=== PATIENT | female | born 1940 | race Caucasian/White ===

== ENCOUNTER 2024-07-27 10:24 | Day surgery (SDC) | payer MEDICARE ==
[2024-07-26 12:32] VITALS: BMI 30.9
[2024-07-27] MEDS ORDERED: Lidocaine 2% PF 5 ML VIAL ONE (11:44)
[2024-07-27] MEDS ORDERED: Iopamidol 15 ML ONE (11:53)
[2024-07-27] MEDS ORDERED: LevoFLOXacin D5W 500 mg (100 mL) BAG ONE (12:04)
[2024-07-27] MEDS ORDERED: PROPOFOL 200 MG/20 ML VIAL ONE (12:25)
[2024-07-27] MEDS ORDERED: fentaNYL PF 100 MCG/2 ML SYRINGE ONE (12:28)
[2024-07-27] MEDS ORDERED: Dexamethasone 4 mg/ml Vial ONE (12:28)
[2024-07-27] MEDS ORDERED: Ondansetron PF 4 MG/2 ML Vial ONE (12:28)
[2024-07-27] MEDS ORDERED: PHENYLEPHRINE-NS 100 MCG/ML 10 ML SYRINGE ONE (12:32)
[2024-07-27] MEDS ORDERED: HYDROcodone/Acetaminophen 5/325 mg Tablet ONE (14:33)
== END 2024-07-27 16:13 ==
LOC: SDC 10:24
PROVIDERS: ATTEND Urology
PROC: 0T768DZ Dilation of Right Ureter with Intraluminal Device, Via Natural or Artificial Opening Endoscopic (ICD-10-PCS; principal; 2024-07-27)
PROC: 0TC08ZZ Extirpation of Matter from Right Kidney, Via Natural or Artificial Opening Endoscopic (ICD-10-PCS; 2024-07-27)
DX: A41.9 Sepsis, unspecified organism (principal); N20.0 Calculus of kidney; E78.00 Pure hypercholesterolemia, unspecified; Z96.653 Presence of artificial knee joint, bilateral; Z90.710 Acquired absence of both cervix and uterus; Z86.73 Personal history of transient ischemic attack (TIA), and cerebral infarction without residual deficits; Z88.0 Allergy status to penicillin; Z79.02 Long term (current) use of antithrombotics/antiplatelets; Z79.899 Other long term (current) drug therapy
CPT/HCPCS: 52332; 52352; 74420; 82365; J1100; J1956; J2405; Q9967; 88300; C1747; C1769; C2617

== ENCOUNTER 2024-09-09 22:26 | Emergency (ER) | payer MEDICARE ==
[2024-09-09 23:06] LABS: #Basophils 0.08 10x3/uL (0.0-0.2); %Basophils 1.3 % (0.0-1.0); %Eosinophils 4.1 % (0.0-10.0); %Lymphocytes 26.8 % (21.0-51.0); %Monocytes 9.6 % (0.0-10.0); %Neutrophils 57.9 % (42.0-75.0); Hematocrit 35.3 % (36.0-47.0); Hemoglobin 11.4 g/dL (12.0-16.0); Mean Corpuscular HGB CONC 32.3 g/dL (32.0-36.0); Mean Corpuscular Hemoglobin 30.7 pg (27.0-31.0); Mean Corpuscular Volume 95.1 fL (78.0-98.0); Mean Platelet Volume 9.2 fL (7.4-10.4); Platelet Count 271 10x3/uL (130-400); RBC Distribution Width 14.6 % (11.5-14.5); Red Blood Cell (RBC) Count 3.71 mill/uL (4.20-5.40)
[2024-09-09 23:24] LABS: Prothrombin Time 13.4 sec (12.0-14.7)
[2024-09-09 23:29] LABS: ALT (SGPT) 14 U/L (8-55); AST (SGOT) 23 U/L (5-34); Albumin 3.5 g/dL (3.4-4.8); Alkaline Phosphatase 159 U/L (40-110); Anion Gap 11 mmol/L (10-20); BUN (Urea Nitrogen) 26 mg/dL (9.8-20.1); Bilirubin, Total 0.3 mg/dL (0.2-1.2); Calc. Creatinine Clearance 0 mL/min (70-130); Calcium 9.1 mg/dL (7.8-10.44); Carbon Dioxide 23 mmol/L (23-31); Chloride 110 mmol/L (98-107); Estimated GFR 37; Globulin 3.7 g/dL (2.4-3.5); Glucose 97 mg/dL (83-110); Protein, Total 7.2 g/dL (5.8-8.1); Sodium 140 mmol/L (136-145)
[2024-09-10] MEDS ORDERED: Apixaban 5 MG TAB ONE (00:16)
== END 2024-09-10 00:28 ==
LOC: ERS 22:26
DX: I82.412 Acute embolism and thrombosis of left femoral vein (principal)
CPT/HCPCS: 80053; 83880; 85025; 85610; 85730; 93005; 93923; 93970

== ENCOUNTER 2024-09-13 08:49 | Inpatient (IN) | payer MEDICARE ==
[2024-09-13 09:41] LABS: #Eosinophils Less than 0.03 10x3/uL (0.0-0.7); Mean Corpuscular Volume 95.7 fL (78.0-98.0); RBC Distribution Width 14.7 % (11.5-14.5)
[2024-09-13 09:57] LABS: #Basophils 0.04 10x3/uL (0.0-0.2); %Basophils 0.2 % (0.0-1.0); %Lymphocytes 2.2 % (21.0-51.0); %Monocytes 5.5 % (0.0-10.0); %Neutrophils 91.3 % (42.0-75.0); Hematocrit 37.5 % (36.0-47.0); Mean Corpuscular Hemoglobin 30.6 pg (27.0-31.0); Mean Platelet Volume 9.6 fL (7.4-10.4); Platelet Count 290 10x3/uL (130-400); Red Blood Cell (RBC) Count 3.92 mill/uL (4.20-5.40)
[2024-09-13 10:01] LABS: INR-International Normal Ratio 3.2; Prothrombin Time 33.2 sec (12.0-14.7)
[2024-09-13 10:02] LABS: PTT 50.1 sec (22.9-36.1)
[2024-09-13 10:04] LABS: ALT (SGPT) 19 U/L (8-55); AST (SGOT) 32 U/L (5-34); Albumin 3.1 g/dL (3.4-4.8); Alkaline Phosphatase 149 U/L (40-110); Anion Gap 17 mmol/L (10-20); BUN (Urea Nitrogen) 35 mg/dL (9.8-20.1); Bilirubin, Total 0.6 mg/dL (0.2-1.2); Calc. Creatinine Clearance 0 mL/min (70-130); Calcium 9.1 mg/dL (7.8-10.44); Carbon Dioxide 18 mmol/L (23-31); Chloride 109 mmol/L (98-107); Estimated GFR 15; Globulin 4.3 g/dL (2.4-3.5); Glucose 192 mg/dL (83-110); Potassium 5.3 mmol/L (3.5-5.1); Protein, Total 7.4 g/dL (5.8-8.1); Sodium 139 mmol/L (136-145)
[2024-09-13] MEDS ORDERED: Iopamidol-370 76% 500 ML MDV (1 ML CHARGE) ONE (11:03)
[2024-09-13 11:08] LABS: Troponin I 0.059 ng/mL (< 0.028)
[2024-09-13] MEDS ORDERED: cefTRIAXone (ROCEPHIN) 2 GM VIAL ONE (11:08)
[2024-09-13] MEDS ORDERED: Sodium Chloride 0.9% 100 ML ONE (11:09)
[2024-09-13 12:01] LABS: Bilirubin Negative (Negative); Blood, Urine 3+ (Negative); CAUTI Indications for Culture Dysuria,urgency,freq; Clarity Turbid (Clear); Glucose, Urine (Dipstick) 100 mg/dL (Negative); Ketone, Urine Negative (Negative); Leukocyte 250 Leu/uL (Negative); Nitrite Negative (Negative); Protein, Urine (Dipstick) 30 mg/dL (Neg-Trace); RBC/HPF Greater than 50 HPF (0-3); Specific Gravity, Urine 1.023 (1.002-1.036); Urobilinogen Normal mg/dL (Less than 2); WBC/HPF 21-50 HPF (0-3)
[2024-09-13 12:05] LABS: Bacteria/HPF 1+ HPF (None Seen)
[2024-09-13 12:06] LABS: Urine Culture Reflex Yes Yes
[2024-09-13] MEDS ORDERED: cloNIDine 0.1 MG TAB ONE (13:49)
[2024-09-13 14:09] LABS: Lactic Acid 1.62 mmol/L (0.5-2.2)
[2024-09-13] MEDS ORDERED: hydrALAZINE 20 MG/ML VIAL ONE (14:18)
[2024-09-13] MEDS ORDERED: Labetalol HCl 100 MG/20 ML VIAL ONE (15:20)
[2024-09-13] MEDS ORDERED: PROPOFOL 20 ML ONE (15:28)
[2024-09-13] MEDS ORDERED: Iopamidol 30 ML ONE (15:28)
[2024-09-13] MEDS ORDERED: fentaNYL 50 mcg/mL 1 mL Vial ONE (15:29)
[2024-09-13] MEDS ORDERED: Bisacodyl 5 MG TAB PO PRN (16:01)
[2024-09-13] MEDS ORDERED: Acetaminophen 650 MG Suppository PR PRN (16:01)
[2024-09-13] MEDS ORDERED: Ondansetron ODT 4 MG TAB PO PRN (16:01)
[2024-09-13] MEDS ORDERED: Senokot S 8.6-50 MG TAB PO PRN (16:01)
[2024-09-13] MEDS ORDERED: Ondansetron PF 4 MG/2 ML Vial IVP PRN (16:01)
[2024-09-13] MEDS ORDERED: PHENYLEPHRINE-NS 100 MCG/ML 10 ML SYRINGE ONE (16:14)
[2024-09-13] MEDS ORDERED: Rocuronium Bromide 10 MG/ML (10ML VIAL) ONE (16:14)
[2024-09-13] MEDS ORDERED: Lidocaine 1% PF 5 ML VIAL ONE (16:14)
[2024-09-13] MEDS ORDERED: Dexamethasone 20 MG/5 ML VIAL ONE (16:25)
[2024-09-13] MEDS ORDERED: Ondansetron PF 4 MG/2 ML Vial ONE (16:25)
[2024-09-13] MEDS ORDERED: SUGAMMADEX SODIUM 200 MG/2 ML VIAL ONE (16:36)
[2024-09-13] MEDS: Acetaminophen 325 MG TAB PO PRN (22:09)
[2024-09-13 22:46] VITALS: BMI 34.9
[2024-09-14 01:08] LABS: Troponin I 0.048 ng/mL (< 0.028)
[2024-09-14 06:29] LABS: Anion Gap 13 mmol/L (10-20); BUN (Urea Nitrogen) 43 mg/dL (9.8-20.1); Calc. Creatinine Clearance 24 mL/min (70-130); Calcium 8.3 mg/dL (7.8-10.44); Carbon Dioxide 18 mmol/L (23-31); Chloride 115 mmol/L (98-107); Estimated GFR 20; Glucose 167 mg/dL (83-110); Potassium 5.3 mmol/L (3.5-5.1); Sodium 141 mmol/L (136-145)
[2024-09-14 06:43] LABS: #Basophils Less than 0.03 10x3/uL (0.0-0.2); #Eosinophils Less than 0.03 10x3/uL (0.0-0.7); %Basophils 0.1 % (0.0-1.0); %Lymphocytes 4.1 % (21.0-51.0); %Monocytes 4.3 % (0.0-10.0); %Neutrophils 90.8 % (42.0-75.0); Hematocrit 26.8 % (36.0-47.0); Hemoglobin 8.4 g/dL (12.0-16.0); Mean Corpuscular HGB CONC 31.3 g/dL (32.0-36.0); Mean Corpuscular Hemoglobin 30.4 pg (27.0-31.0); Mean Corpuscular Volume 97.1 fL (78.0-98.0); Mean Platelet Volume 9.9 fL (7.4-10.4); Platelet Count 207 10x3/uL (130-400); RBC Distribution Width 15.5 % (11.5-14.5); Red Blood Cell (RBC) Count 2.76 mill/uL (4.20-5.40)
[2024-09-14] MEDS ORDERED: Sodium Chloride 0.45% 1,000 ML IV SCH (08:00)
[2024-09-14] MEDS: Polyethylene Glycol 3350 17 GM Packet PO SCH (08:37)
[2024-09-14] MEDS: Acetaminophen 500 MG TAB PO SCH (08:37)
[2024-09-14] MEDS: Sodium Bicarbonate 150 MEQ in Sterile Water 1,000 ML IV SCH (08:38)
[2024-09-14] MEDS: cefTRIAXone\\ROCEPHIN 1 GM in Sodium Chloride 0.9% 100 ML IVPB SCH (11:42)
[2024-09-14] MEDS ORDERED: Heparin 25,000 units/D5W 500 ML IVPB SCH (13:00)
[2024-09-14] MEDS ORDERED: Heparin 10,000 UNITS/ 10 ML VIAL SLOW IVP SCH (13:00)
[2024-09-14 13:34] LABS: Creatinine, Urine 42.22 mg/dL (47-110)
[2024-09-14] MEDS: Ipratropium/Albuterol 3 ML NEB NEB SCH (13:43)
[2024-09-14 14:31] LABS: Hematocrit 27.1 % (36.0-47.0); Hemoglobin 8.7 g/dL (12.0-16.0); Platelet Count 226 10x3/uL (130-400)
[2024-09-14] MEDS: Atorvastatin Calcium 20 MG TAB PO SCH (21:11)
[2024-09-14] MEDS: methylPREDNISolone Sod Succ 40 MG VIAL IVP SCH (21:12)
[2024-09-15 05:41] LABS: #Basophils Less than 0.03 10x3/uL (0.0-0.2); #Eosinophils Less than 0.03 10x3/uL (0.0-0.7); %Basophils 0.1 % (0.0-1.0); %Lymphocytes 4.1 % (21.0-51.0); %Monocytes 1.8 % (0.0-10.0); %Neutrophils 93.1 % (42.0-75.0); Hematocrit 24.7 % (36.0-47.0); Hemoglobin 7.9 g/dL (12.0-16.0); Mean Corpuscular Hemoglobin 30.5 pg (27.0-31.0); Mean Corpuscular Volume 95.4 fL (78.0-98.0); Mean Platelet Volume 9.9 fL (7.4-10.4); Platelet Count 217 10x3/uL (130-400); RBC Distribution Width 15.4 % (11.5-14.5); Red Blood Cell (RBC) Count 2.59 mill/uL (4.20-5.40)
[2024-09-15 06:04] LABS: Anion Gap 16 mmol/L (10-20); BUN (Urea Nitrogen) 44 mg/dL (9.8-20.1); Calc. Creatinine Clearance 27 mL/min (70-130); Calcium 8.4 mg/dL (7.8-10.44); Carbon Dioxide 26 mmol/L (23-31); Chloride 105 mmol/L (98-107); Estimated GFR 24; Glucose 165 mg/dL (83-110); Sodium 143 mmol/L (136-145)
[2024-09-15] MEDS: Pantoprazole 40 MG DR.TAB PO SCH (08:36)
[2024-09-15] MEDS: Metoprolol Tartrate 25 MG TAB PO SCH (09:23)
[2024-09-15 11:12] LABS: Hematocrit 23.5 % (36.0-47.0); Hemoglobin 7.6 g/dL (12.0-16.0); Platelet Count 229 10x3/uL (130-400)
[2024-09-15] MEDS: Heparin 10,000 UNITS/ 10 ML VIAL SLOW IVP SCH (12:28)
[2024-09-15] MEDS: Heparin 25,000 units/D5W 500 ML IVPB SCH (12:30)
[2024-09-15 21:08] LABS: PTT Greater than 250.0 sec (22.9-36.1)
[2024-09-15 23:35] LABS: PTT Greater than 250.0 sec (22.9-36.1)
[2024-09-16 02:38] LABS: #Basophils Less than 0.03 10x3/uL (0.0-0.2); #Eosinophils Less than 0.03 10x3/uL (0.0-0.7); %Lymphocytes 8.8 % (21.0-51.0); %Monocytes 3.7 % (0.0-10.0); %Neutrophils 86.2 % (42.0-75.0); Hematocrit 21.8 % (36.0-47.0); Hemoglobin 6.8 g/dL (12.0-16.0); Mean Corpuscular HGB CONC 31.2 g/dL (32.0-36.0); Mean Corpuscular Hemoglobin 30.4 pg (27.0-31.0); Mean Corpuscular Volume 97.3 fL (78.0-98.0); Mean Platelet Volume 9.8 fL (7.4-10.4); Platelet Count 207 10x3/uL (130-400); RBC Distribution Width 15.1 % (11.5-14.5); Red Blood Cell (RBC) Count 2.24 mill/uL (4.20-5.40)
[2024-09-16 02:51] LABS: Albumin 2.3 g/dL (3.4-4.8); Anion Gap 14 mmol/L (10-20); BUN (Urea Nitrogen) 36 mg/dL (9.8-20.1); BUN/Creatinine Ratio 19.89; Calc. Creatinine Clearance 31 mL/min (70-130); Calcium 7.9 mg/dL (7.8-10.44); Carbon Dioxide 29 mmol/L (23-31); Chloride 102 mmol/L (98-107); Estimated GFR 28; Glucose 156 mg/dL (83-110); Phosphorus 3.6 mg/dL (2.3-4.7); Sodium 141 mmol/L (136-145)
[2024-09-16] MEDS: Albumin 25% 25 GM (100 mL) BOT IVPB SCH ×2 (08:10→12:27)
[2024-09-16] MEDS ORDERED: Communication Order-Pharmacy FS SCH (09:15)
[2024-09-16] MEDS: Amlodipine 5 MG TAB PO SCH (12:29)
[2024-09-16] MEDS: Sodium Chloride 0.9% 1,000 ML IV SCH (12:47)
[2024-09-16] MEDS ORDERED: Vancomycin Dose by Levels Sliding Scale (Wt 71-99) FS SCH (13:45)
[2024-09-16] MEDS: Vancomycin (BATCH) 1.75 GM in Premix 1 BAG IVPB SCH (13:54)
[2024-09-16 18:35] LABS: Hematocrit 26.6 % (36.0-47.0); Hemoglobin 8.3 g/dL (12.0-16.0)
[2024-09-16] MEDS ORDERED: Vancomycin 1 GM in Sodium Chloride 0.9% 250 ML 250 ML IVPB SCH (21:00)
[2024-09-17] MEDS: Furosemide 40 MG (4 mL) VIAL SLOW IVP SCH ×3 (02:34→17:03)
[2024-09-17 03:07] LABS: #Basophils 0.04 10x3/uL (0.0-0.2); #Eosinophils Less than 0.03 10x3/uL (0.0-0.7); %Basophils 0.3 % (0.0-1.0); %Eosinophils 0.1 % (0.0-10.0); %Lymphocytes 14.4 % (21.0-51.0); %Monocytes 7.2 % (0.0-10.0); %Neutrophils 74.7 % (42.0-75.0); Hematocrit 29.6 % (36.0-47.0); Hemoglobin 9.4 g/dL (12.0-16.0); Mean Corpuscular HGB CONC 31.8 g/dL (32.0-36.0); Mean Corpuscular Volume 94.6 fL (78.0-98.0); Mean Platelet Volume 9.5 fL (7.4-10.4); Platelet Count 250 10x3/uL (130-400); RBC Distribution Width 16.5 % (11.5-14.5); Red Blood Cell (RBC) Count 3.13 mill/uL (4.20-5.40)
[2024-09-17 03:38] LABS: Albumin 4.4 g/dL (3.4-4.8); Anion Gap 13 mmol/L (10-20); BUN (Urea Nitrogen) 31 mg/dL (9.8-20.1); BUN/Creatinine Ratio 19.87; Calc. Creatinine Clearance 36 mL/min (70-130); Calcium 8.8 mg/dL (7.8-10.44); Carbon Dioxide 29 mmol/L (23-31); Chloride 107 mmol/L (98-107); Estimated GFR 33; Glucose 94 mg/dL (83-110); Potassium 3.4 mmol/L (3.5-5.1); Sodium 146 mmol/L (136-145)
[2024-09-17] MEDS: Nitroglycerin 2% Ointment 1 INCH/1 GM Packet TOP SCH (03:45)
[2024-09-17] MEDS ORDERED: hydrALAZINE 20 MG/ML VIAL SLOW IVP PRN (04:07)
[2024-09-17] MEDS ORDERED: niCARdipine 25 MG in Sodium Chloride 0.9% 250 ML 250 ML IVPB SCH (04:15)
[2024-09-17] MEDS: Furosemide 40 MG (4 mL) VIAL ONE (04:20)
[2024-09-17] MEDS: Labetalol HCl 100 MG/20 ML VIAL SLOW IVP PRN (04:22)
[2024-09-17 07:33] LABS: Anion Gap 14 mmol/L (10-20); BUN (Urea Nitrogen) 32 mg/dL (9.8-20.1); Calc. Creatinine Clearance 33 mL/min (70-130); Calcium 8.8 mg/dL (7.8-10.44); Carbon Dioxide 29 mmol/L (23-31); Chloride 106 mmol/L (98-107); Estimated GFR 30; Glucose 127 mg/dL (83-110); Potassium 3.5 mmol/L (3.5-5.1); Sodium 145 mmol/L (136-145)
[2024-09-17] MEDS ORDERED: Amlodipine 5 MG TAB PO SCH (09:00)
[2024-09-17] MEDS: Amlodipine 5 MG TAB PO SCH (10:40)
[2024-09-17] MEDS: predniSONE 5 MG TAB PO SCH (10:44)
[2024-09-17] MEDS ORDERED: Iopamidol 370 76% 100 ML VIAL ONE (12:07)
[2024-09-17] MEDS ORDERED: Sodium Chloride 0.9% 200 ML IV PRN (14:15)
[2024-09-17] MEDS ORDERED: Acetaminophen/Codeine 30-300mg Tablet PO PRN ×2 (14:15)
[2024-09-17] MEDS ORDERED: Nitroglycerin 0.4 MG TAB (25 Tab Bottle) SL PRN (14:15)
[2024-09-17 14:24] LABS: Vancomycin, Trough 18.3 ug/mL
[2024-09-17] MEDS: Vancomycin HCl 500 MG in Sodium Chloride 0.9% 100 ML IV SCH (17:03)
[2024-09-18 09:24] LABS: #Basophils Less than 0.03 10x3/uL (0.0-0.2); %Basophils 0.2 % (0.0-1.0); %Eosinophils 0.7 % (0.0-10.0); %Lymphocytes 9.1 % (21.0-51.0); %Neutrophils 80.8 % (42.0-75.0); Hematocrit 34.6 % (36.0-47.0); Hemoglobin 10.9 g/dL (12.0-16.0); Mean Corpuscular HGB CONC 31.5 g/dL (32.0-36.0); Mean Corpuscular Hemoglobin 29.9 pg (27.0-31.0); Mean Corpuscular Volume 94.8 fL (78.0-98.0); Mean Platelet Volume 9.5 fL (7.4-10.4); Platelet Count 294 10x3/uL (130-400); Red Blood Cell (RBC) Count 3.65 mill/uL (4.20-5.40)
[2024-09-18] MEDS: Dapagliflozin Propanediol 10 MG TAB PO SCH (09:34)
[2024-09-18] MEDS: Metoprolol Succinate XL 25 MG ER.TAB PO SCH (09:34)
[2024-09-18 09:41] LABS: Albumin 3.8 g/dL (3.4-4.8); Anion Gap 18 mmol/L (10-20); BUN (Urea Nitrogen) 32 mg/dL (9.8-20.1); BUN/Creatinine Ratio 19.28; Calc. Creatinine Clearance 33 mL/min (70-130); Calcium 9.1 mg/dL (7.8-10.44); Carbon Dioxide 29 mmol/L (23-31); Chloride 98 mmol/L (98-107); Estimated GFR 31; Glucose 154 mg/dL (83-110); Potassium 2.9 mmol/L (3.5-5.1); Sodium 142 mmol/L (136-145)
[2024-09-18] MEDS: Magnesium 2 GM/50 ML(in water) 2 GM in Premix 1 BAG IVPB SCH (11:21)
[2024-09-18] MEDS: Potassium Chloride 20 MEQ TAB PO SCH ×2 (11:21→16:22)
[2024-09-18 13:15] LABS: Potassium 3.4 mmol/L (3.5-5.1)
[2024-09-18 13:22] LABS: Magnesium 2.6 mg/dL (1.6-2.6)
[2024-09-18] MEDS: Vancomycin HCl 500 MG in Sodium Chloride 0.9% 100 ML IV SCH (18:28)
[2024-09-19 05:07] LABS: Anion Gap 14 mmol/L (10-20); BUN (Urea Nitrogen) 35 mg/dL (9.8-20.1); Calc. Creatinine Clearance 31 mL/min (70-130); Calcium 8.6 mg/dL (7.8-10.44); Carbon Dioxide 30 mmol/L (23-31); Chloride 106 mmol/L (98-107); Estimated GFR 28; Glucose 118 mg/dL (83-110); Magnesium 2.2 mg/dL (1.6-2.6); Potassium 3.9 mmol/L (3.5-5.1); Sodium 146 mmol/L (136-145)
[2024-09-19 05:09] LABS: #Basophils 0.03 10x3/uL (0.0-0.2); %Basophils 0.3 % (0.0-1.0); %Eosinophils 2.2 % (0.0-10.0); %Monocytes 10.2 % (0.0-10.0); Hematocrit 31.1 % (36.0-47.0); Hemoglobin 9.8 g/dL (12.0-16.0); Mean Corpuscular HGB CONC 31.5 g/dL (32.0-36.0); Mean Corpuscular Hemoglobin 30.2 pg (27.0-31.0); Mean Corpuscular Volume 95.7 fL (78.0-98.0); Mean Platelet Volume 9.7 fL (7.4-10.4); Platelet Count 290 10x3/uL (130-400); RBC Distribution Width 15.2 % (11.5-14.5); Red Blood Cell (RBC) Count 3.25 mill/uL (4.20-5.40)
[2024-09-19] MEDS: Amlodipine 5 MG TAB PO SCH (08:41)
[2024-09-19 15:06] LABS: Vancomycin, Trough 18.1 ug/mL
[2024-09-19] MEDS: Vancomycin HCl 500 MG in Sodium Chloride 0.9% 100 ML IV SCH (21:03)
[2024-09-20 04:50] LABS: #Basophils 0.03 10x3/uL (0.0-0.2); %Basophils 0.3 % (0.0-1.0); %Eosinophils 3.6 % (0.0-10.0); %Lymphocytes 17.7 % (21.0-51.0); %Monocytes 10.8 % (0.0-10.0); %Neutrophils 64.1 % (42.0-75.0); Hematocrit 32.6 % (36.0-47.0); Hemoglobin 10.3 g/dL (12.0-16.0); Mean Corpuscular HGB CONC 31.6 g/dL (32.0-36.0); Mean Corpuscular Hemoglobin 29.6 pg (27.0-31.0); Mean Corpuscular Volume 93.7 fL (78.0-98.0); Mean Platelet Volume 9.8 fL (7.4-10.4); Platelet Count 366 10x3/uL (130-400); RBC Distribution Width 15.5 % (11.5-14.5); Red Blood Cell (RBC) Count 3.48 mill/uL (4.20-5.40)
[2024-09-20 05:03] LABS: Anion Gap 14 mmol/L (10-20); BUN (Urea Nitrogen) 34 mg/dL (9.8-20.1); Calc. Creatinine Clearance 35 mL/min (70-130); Calcium 8.9 mg/dL (7.8-10.44); Carbon Dioxide 28 mmol/L (23-31); Chloride 107 mmol/L (98-107); Estimated GFR 34; Glucose 106 mg/dL (83-110); Potassium 3.8 mmol/L (3.5-5.1); Sodium 145 mmol/L (136-145)
[2024-09-20 06:13] LABS: Vancomycin, Random 22.1 ug/mL (See Comment)
[2024-09-21 04:23] LABS: #Basophils 0.03 10x3/uL (0.0-0.2); %Basophils 0.3 % (0.0-1.0); %Eosinophils 7.4 % (0.0-10.0); %Lymphocytes 19.9 % (21.0-51.0); %Monocytes 9.5 % (0.0-10.0); %Neutrophils 60.6 % (42.0-75.0); Hematocrit 31.6 % (36.0-47.0); Hemoglobin 9.9 g/dL (12.0-16.0); Mean Corpuscular HGB CONC 31.3 g/dL (32.0-36.0); Mean Corpuscular Hemoglobin 29.6 pg (27.0-31.0); Mean Corpuscular Volume 94.6 fL (78.0-98.0); Mean Platelet Volume 9.7 fL (7.4-10.4); Platelet Count 381 10x3/uL (130-400); RBC Distribution Width 15.7 % (11.5-14.5); Red Blood Cell (RBC) Count 3.34 mill/uL (4.20-5.40)
[2024-09-21 05:00] LABS: Anion Gap 12 mmol/L (10-20); BUN (Urea Nitrogen) 30 mg/dL (9.8-20.1); Calc. Creatinine Clearance 36 mL/min (70-130); Calcium 8.9 mg/dL (7.8-10.44); Carbon Dioxide 27 mmol/L (23-31); Chloride 108 mmol/L (98-107); Estimated GFR 35; Glucose 96 mg/dL (83-110); Potassium 3.8 mmol/L (3.5-5.1); Sodium 143 mmol/L (136-145)
[2024-09-21] MEDS: Senokot S 8.6-50 MG TAB PO PRN (09:19)
[2024-09-21] MEDS: Metoprolol Succinate XL 25 MG ER.TAB PO SCH (10:26)
[2024-09-21] MEDS ORDERED: Ipratropium/Albuterol 3 ML NEB NEB PRN (12:46)
[2024-09-21 14:56] VITALS: BMI 33.3
[2024-09-22 04:40] LABS: #Basophils 0.04 10x3/uL (0.0-0.2); %Basophils 0.4 % (0.0-1.0); %Eosinophils 7.7 % (0.0-10.0); %Monocytes 9.7 % (0.0-10.0); %Neutrophils 62.2 % (42.0-75.0); Hemoglobin 10.1 g/dL (12.0-16.0); Mean Corpuscular HGB CONC 30.6 g/dL (32.0-36.0); Mean Corpuscular Hemoglobin 29.7 pg (27.0-31.0); Mean Corpuscular Volume 97.1 fL (78.0-98.0); Mean Platelet Volume 9.5 fL (7.4-10.4); Platelet Count 384 10x3/uL (130-400); RBC Distribution Width 15.4 % (11.5-14.5)
[2024-09-22 05:07] LABS: Anion Gap 12 mmol/L (10-20); BUN (Urea Nitrogen) 31 mg/dL (9.8-20.1); Calc. Creatinine Clearance 36 mL/min (70-130); Carbon Dioxide 25 mmol/L (23-31); Chloride 111 mmol/L (98-107); Estimated GFR 35; Glucose 101 mg/dL (83-110); Potassium 3.9 mmol/L (3.5-5.1); Sodium 144 mmol/L (136-145)
[2024-09-22 05:17] LABS: Vancomycin, Random 23.2 ug/mL (See Comment)
[2024-09-22] MEDS: Amlodipine 5 MG TAB PO SCH (08:32)
[2024-09-22] MEDS: Metoprolol Succinate XL 50 MG ER.TAB PO SCH (08:33)
[2024-09-22 16:52] VITALS: BP 147/67; TEMP 97.7
[2024-09-22] MEDS ORDERED: AMOXicillin 250 MG CAP PO SCH (21:00)
== END 2024-09-22 18:46 | DRG 853 ==
LOC: ERS 08:49 → SDC 14:48 → T4-A 14:50 → CCU 09-17 04:06 → IMCU/EMU 09-17 07:17 → 2NO 09-19 15:18
PROVIDERS: ADMIT Urology; ATTEND Family Medicine
PROC: 30233N1 Transfusion of Nonautologous Red Blood Cells into Peripheral Vein, Percutaneous Approach (ICD-10-PCS; principal; 2024-09-13)
PROC: 0T778DZ Dilation of Left Ureter with Intraluminal Device, Via Natural or Artificial Opening Endoscopic (ICD-10-PCS; 2024-09-13)
PROC: BT1B1ZZ Fluoroscopy of Bladder and Urethra using Low Osmolar Contrast (ICD-10-PCS; 2024-09-13)
PROC: 3E03329 Introduction of Other Anti-infective into Peripheral Vein, Percutaneous Approach (ICD-10-PCS; 2024-09-13)
PROC: 06H03DZ Insertion of Intraluminal Device into Inferior Vena Cava, Percutaneous Approach (ICD-10-PCS; 2024-09-17)
DX: A41.9 Sepsis, unspecified organism (principal); I50.31 Acute diastolic (congestive) heart failure; J96.01 Acute respiratory failure with hypoxia; N13.6 Pyonephrosis; K92.0 Hematemesis; I13.0 Hypertensive heart and chronic kidney disease with heart failure and stage 1 through stage 4 chronic kidney disease, or unspecified chronic kidney disease; I69.351 Hemiplegia and hemiparesis following cerebral infarction affecting right dominant side; D62 Acute posthemorrhagic anemia; N17.9 Acute kidney failure, unspecified; E87.20 Acidosis, unspecified; B96.89 Other specified bacterial agents as the cause of diseases classified elsewhere; E78.5 Hyperlipidemia, unspecified; R31.9 Hematuria, unspecified; N18.30 Chronic kidney disease, stage 3 unspecified; I25.2 Old myocardial infarction; I48.0 Paroxysmal atrial fibrillation; E88.09 Other disorders of plasma-protein metabolism, not elsewhere classified; N14.11 Contrast-induced nephropathy; E87.5 Hyperkalemia; I16.0 Hypertensive urgency; E87.6 Hypokalemia; Z86.718 Personal history of other venous thrombosis and embolism; Z79.01 Long term (current) use of anticoagulants; Z88.0 Allergy status to penicillin; Z96.652 Presence of left artificial knee joint; Z79.899 Other long term (current) drug therapy; Z79.02 Long term (current) use of antithrombotics/antiplatelets
CPT/HCPCS: 36415; 36430; 37191; 51701; 71045; 74177; 74420; 80048; 80053; 80069; 80202; 81001; 82274; 82550; 82570; 83605; 83735; 83880; 84156; 84300; 84484; 85025; 85610; 85730; 86850; 86900; 86901; 87040; 87077; 87086; 87186; 93005; 93306; 94640; 94660; 94760; 96374; 96375; A4217; C1769; C1880; C1894; C2617; J0360; J0696; J1100; J1644; J1940; J2405; J2704; J2919; J3010; J3370; J3475; J7030; J7512; J7620; P9016; P9047; Q9967